=== PATIENT | female | born 1960 | race Caucasian/White ===

== ENCOUNTER 2017-12-24 14:28 | Emergency (ER) | payer OTHER ==
[~2017-12-24] VITALS: Ht 154.9 cm; Wt 75.0 kg
[2017-12-24] MEDS ORDERED: IBUPROFEN 600MG TABLET PO ONE (17:45)
[2017-12-24 18:12] VITALS: BP 139/72
== END 2017-12-24 18:17 | disposition home or self-care (01) ==
LOC: ER 16:15
DX: M77.42 Metatarsalgia, left foot (principal); M21.42 Flat foot [pes planus] (acquired), left foot; I10 Essential (primary) hypertension; Z96.659 Presence of unspecified artificial knee joint
CPT/HCPCS: 73630; 99284